=== PATIENT | female | born 1965 | race African-American/Black ===

== ENCOUNTER 2019-11-29 13:48 | Emergency (ER) | payer OTHER ==
[~2019-11-29] VITALS: Ht 158.8 cm; Wt 140.6 kg
[2019-11-29] MEDS ORDERED: IBUPROFEN 600 MG TAB PO NR (14:30)
--- NOTE | 2019-11-29 15:15 | Diagnostic Imaging Report ---
Exam: Right ankle 3 views History: Pain Comparison: None. Findings: No fracture or malalignment. Joint spaces preserved. Dorsal and plantar calcaneal enthesophyte Achilles tendon thickening. Impression: No acute osseous abnormality Findings the distal Achilles tendinopathy Signed by: Dr. Blake Wei M.D. on 11/29/2019 3:12 PM
[2019-11-29 15:59] VITALS: BP 178/100
== END 2019-11-29 15:59 | disposition home or self-care (01) ==
LOC: ER 13:48
DX: S90.31XA Contusion of right foot, initial encounter (principal); W22.09XA Striking against other stationary object, initial encounter; Y92.008 Other place in unspecified non-institutional (private) residence as the place of occurrence of the external cause; I10 Essential (primary) hypertension; I25.2 Old myocardial infarction; Z86.73 Personal history of transient ischemic attack (TIA), and cerebral infarction without residual deficits
CPT/HCPCS: 99283

== ENCOUNTER 2021-07-24 13:44 | Emergency (ER) | payer OTHER ==
[~2021-07-24] VITALS: Ht 157.5 cm; Wt 138.8 kg
[2021-07-24] MEDS ORDERED: ELIMITE60 GM TOP (14:30)
== END 2021-07-24 14:49 | disposition home or self-care (01) ==
LOC: FSED 14:28
DX: B86 Scabies (principal); I10 Essential (primary) hypertension; I25.2 Old myocardial infarction; Z86.73 Personal history of transient ischemic attack (TIA), and cerebral infarction without residual deficits
CPT/HCPCS: 99282